=== PATIENT | female | born 1955 | race Two or more races ===

== ENCOUNTER 2024-01-28 15:47 | Emergency (ER) | payer MEDICARE ==
[2024-01-28] MEDS ORDERED: Ketorolac Tromethamine 30 MG (1 mL) VIAL ONE (16:16)
== END 2024-01-28 17:55 | disposition home or self-care (01) ==
LOC: ERS 15:47
DX: S52.501A Unspecified fracture of the lower end of right radius, initial encounter for closed fracture (principal); V89.2XXA Person injured in unspecified motor-vehicle accident, traffic, initial encounter
CPT/HCPCS: 73110; 73590; J1885; 96374